=== PATIENT | female | born 1975 | race Caucasian/White ===

== ENCOUNTER 2023-06-24 09:21 | Day surgery (SDC) | payer OTHER ==
[2023-06-24] MEDS: LACTATED RINGERS 1,000 ML IV ONE ×2 (10:15→10:40)
[2023-06-24] MEDS ORDERED: PROPOFOL 10 MG/ML 20 ML VIAL IV ONE (10:43)
[2023-06-24 10:44] VITALS: TEMP 97.5
--- NOTE | 2023-06-24 10:56 | P.PCN ---
Date of Procedure: 06/24/23 Procedure(s) Performed: BRIEF HISTORY: Patient is a 48-year-old pleasant white female scheduled for an elective colonoscopy as a part of screening for colon cancer. PROCEDURE PERFORMED: Colonoscopy. PREOPERATIVE DIAGNOSIS: Screening for colon cancer. IV sedation per Anesthesia. PROCEDURE: After informed consent was obtained, the patient, was brought into the endoscopy unit. IV sedation was administered by Anesthesia under continuous monitoring. Digital rectal examination was normal. Initially the Olympus CF-160 flexible video colonoscope was then inserted in the rectum, gradually advanced into the cecum without any difficulty. Careful examination was performed as the scope was gradually being withdrawn. Ileocecal valve and the appendiceal orifice were visualized and appeared normal. Prep was excellent. Mucosa of the cecum, ascending colon, transverse colon, descending colon, sigmoid colon, and rectum appeared normal. Retroflexion was performed in the rectum and grade 2 internal hemorrhoidss were seen. The patient tolerated the procedure well. IMPRESSION: Normal-appearing colon from rectum to cecum with no evidence of colorectal neoplasia. Grade 2 internal hemorrhoids. RECOMMENDATIONS: Findings of this examination were discussed with the patient as well as a family. She was advised to have a repeat screening colonoscopy in 10 years.
[2023-06-24 11:24] VITALS: BP 117/52; PULSE 64; RESP 16
== END 2023-06-24 11:45 | disposition home or self-care (01) ==
LOC: ORWHC2ENDO 09:21
PROVIDERS: ATTEND Internal Medicine Gastroenterology
DX: Z12.11 Encounter for screening for malignant neoplasm of colon (principal); K64.1 Second degree hemorrhoids; E06.3 Autoimmune thyroiditis; Z79.899 Other long term (current) drug therapy
CPT/HCPCS: 81025; 45378; J2704

== ENCOUNTER → 2024-04-14 | Outpatient (CLI) | payer OTHER ==
--- NOTE | 2024-04-15 07:52 | MR ---
EXAMINATION TYPE: MR hip RT wo con DATE OF EXAM: 04/14/2024 2:49 PM COMPARISON: Outside radiograph 04/05/2024 CLINICAL INDICATION: Female, 49 years old with history of Right hip pain for 3 months, pain in right groin when moving. Fall from horseback riding TECHNIQUE: Multiplanar, multisequence images of the right hip were obtained without IV contrast. FINDINGS: The sacrum and SI joints appear symmetric and intact. Suggestion of mild degenerative change at the p ubic symphysis. Bilateral hip joint space appears relatively maintained. Trace joint effusion on the right likely phy siologic. No evidence for fracture or AVN. 2 areas of linear fluid signal intensity along the right acetabular labrum, one area at 10:00 anterio rly, sagittal image 15. Second linear area at 12-1 o'clock superiorly, sagittal image 21 and coronal image 11. No para labral cysts seen. The bilateral rectus femoris and hamstring origins as well as the iliopsoas and gluteal insertions ap pear intact. Symmetric course, caliber, and signal intensity of the sciatic nerves. No significant soft tissue abn ormality seen. Prominent periuterine vessels are noted in both adnexa. Uterus anteverted. Suspect a 1.7 cm dominant follicle or functional cyst of the left ovary. Some patchy red marrow hyperplasia. No suspicious bone marrow replacement. IMPRESSION: 1. Possible subtle tears of the right acetabular labrum at (a) 10:00 and (b) 12-1 o'clock. No paralab ral cyst. 2. No other specific abnormality identified. 3. Prominent periuterine vessels in both adnexa are nonspecific and may represent physiologic change. Findings may also be seen with pelvic congestion syndrome. Clinically correlate. [facility], , 04/15/2024 7:49 AM
== END | disposition home or self-care (01) ==
LOC: RADMRIMAIN 13:51
PROVIDERS: ATTEND Orthopaedic Surgery
DX: M25.551 Pain in right hip (principal)